=== PATIENT | female | born 1960 | race Caucasian/White ===

== ENCOUNTER 2016-11-15 20:17 | Emergency (ER) | payer OTHER ==
[2016-11-15 21:19] VITALS: BP 120/74
--- NOTE | 2016-11-15 22:29 | UC ---
Abdominal Pain Female HPI - HPI Summary HPI Summary: hospitalized with C. diff. He had prolonged diarrhea at home before admission. Now she has diarrhea, 10 episodes yesterday, and is worried about C. diff. No recent antibiotics. No history of C. diff. No fever, no blood in stool. She also has IBS, and has frequent stools because of that. Cramping lower abdominal pain. She dropped off a stool sample at her primary care doctor' s office today, results should be available tomorrow. Would like an XRay to be sure there is nothing dangerous going on. Able to eat and drink today. - History of Current Complaint Chief Complaint: UCGI Stated Complaint: STOMACH ISSUES Time Seen by Provider: 11/15/16 20:54 Hx Obtained From: Patient Onset/Duration: Gradual Onset, Lasting Days - 2 Timing: Constant Severity Initially: Mild Severity Currently: Mild Location: Other - lower abdominal, diffuse Character: Aching, Cramping, Dull Aggravating Factor(s): Nothing Alleviating Factor(s): Nothing Associated Signs and Symptoms: Positive: Decreased Appetite, Diarrhea - 10 stools yesterday, 2 or 3 today. Negative: Fever, Cough, Dizzy, Back Pain, Constipation, Blood in Stool, Urinary Symptoms, Vaginal Bleeding, Vaginal Discharge, Nausea, Vomiting - Risk Factors Ovarian Torsion Risk Factor: Negative Allergies/Adverse Reactions: Allergies Allergy/AdvReac Type Severity Reaction Status Date / Time Aspirin Allergy Intermediate Hives Verified 11/15/16 21:14 Miconazole [From Monistat] Allergy Intermediate Hives Verified 11/15/16 21:14 Benzyl Alcohol [From Enbrel] Allergy See Comment Verified 11/15/16 21:14 Etanercept [From Enbrel] Allergy See Comment Verified 11/15/16 21:14 Tromethamine [From Enbrel] Allergy See Comment Verified 11/15/16 21:14 Home Medications: Home Medications Hyoscyamine Sulfate [Oscimin Sr] 0.375 mg PO QID PRN 11/15/16 [History Confirmed 11/15/16] Ondansetron TAB* [Zofran Tab*] 4 mg PO Q6H PRN 11/15/16 [History Confirmed 11/15] Pantoprazole TAB (NF) [Protonix TAB (NF)] 40 mg PO BID 11/15/16 [History Confirmed 11/15/16] Sucralfate TAB* [Carafate*] 1 gm PO QID PRN 11/15/16 [History Confirmed 11/15/16 ] PMH/Surg Hx/FS Hx/Imm Hx - Additional Past Medical History Additional PMH: IBS Endocrine History Of: Denies: Diabetes, Thyroid Disease Cardiovascular History Of: Denies: Cardiac Disorders, Hypertension, Pacemaker/ICD, Congestive Heart Failure Respiratory History Of: Denies: COPD, Asthma GI/ History Of: Denies: Ulcer, Renal Disease - Surgical History Surgical History: Yes Surgery Procedure, Year, and Place: PARTIAL HYSTERECTOMY,LAP ED. T&A, C- SECTION, EXPLORATORY ABDOMEN - Family History Known Family History: Positive: Hypertension - Social History Occupation: Employed Full-time Lives: With Family Alcohol Use: None Substance Use Type: None Smoking Status (MU): Never Smoked Tobacco - Immunization History Most Recent Influenza Vaccination: July 2016 Most Recent Pneumonia Vaccination: 2013 Review of Systems Constitutional: Negative Skin: Negative Eyes: Negative ENT: Negative Respiratory: Negative Cardiovascular: Negative Gastrointestinal: Abdominal Pain, Diarrhea Genitourinary: Negative Motor: Negative Neurovascular: Negative Musculoskeletal: Negative Neurological: Negative Psychological: Negative All Other Systems Reviewed And Are Negative: Yes Physical Exam Triage Information Reviewed: Yes Appearance: Well-Appearing, No Pain Distress, Well-Nourished Vital Signs: Initial Vital Signs Temp 98.5 F 11/15/16 21:09 Pulse 75 11/15/16 21:09 Resp 16 11/15/16 21:09 BP 120/74 11/15/16 21:09 Pulse Ox 100 11/15/16 21:09 Vital Signs Reviewed: Yes Eye Exam: Normal Neck exam: Normal Respiratory Exam: Normal Cardiovascular Exam: Normal Abdomen Description: Positive: No Organomegaly, Soft. Negative: CVA Tenderness (R), CVA Tenderness (L), Distended, Guarding, Hernia @, Hepatomegaly, McBurney' s Point Tenderness, Peritoneal Signs, Pulsatile Mass, Splenomegaly Musculoskeletal Exam: Normal Neurological Exam: Normal Psychological Exam: Normal Skin Exam: Normal Diagnostics - Laboratory Diagnostic Studies Completed/Ordered: AXR: unremarkable Abd Pain Female Course/Dx - Differential Dx/Diagnosis Provider Diagnoses: diarrhea Discharge - Discharge Plan Condition: Stable Disposition: HOME Prescriptions: Dicyclomine CAP* [Bentyl CAP*] 10 mg PO TID PRN #20 cap PRN Reason: intestinal cramping Patient Education Materials: Acute Diarrhea (ED) Referrals: Karla MARTINEZ,Souleymane Acuna [Primary Care Provider] - Additional Instructions: Your abdominal XRay did not show any threatening signs of intestinal distention or blockage. Drink lots of fluids. Try the Bentyl for intestinal cramping if your hyosciamine is not helpful. The results of the C. diff testing should be available by tomorrow afternoon. If you have C. diff, it can be treated with an antibiotic.
--- NOTE | 2016-11-15 22:29 | RAD ---
Indication: Bloating, diarrhea. Flat and upright views of the abdomen demonstrates no free air. Air is noted in the colon. No dilated loops of bowel are noted. Surgical clips noted in the pelvis. Patient status post cholecystectomy. IMPRESSION: No free air is identified. There is gas in the colon. Nonspecific bowel gas pattern.
== END 2016-11-15 22:32 | disposition home or self-care (01) ==
LOC: UCCORT 20:17
DX: R19.7 Diarrhea, unspecified (principal); Z88.6 Allergy status to analgesic agent; Z88.8 Allergy status to other drugs, medicaments and biological substances
CPT/HCPCS: 74020; 87086; 99212; G0463

== ENCOUNTER 2017-10-22 12:51 | Emergency (ER) | payer OTHER ==
[2017-10-22 13:10] VITALS: BP 170/84
[2017-10-22] MEDS ORDERED: Ondansetron INJ* 2 MG/ML VIAL IV ONE (13:30)
--- NOTE | 2017-10-22 13:35 | UC ---
Abdominal Pain Female HPI - HPI Summary HPI Summary: 57 yo female with 57yo female with the onset of 08/14 epigastric pain radiating to back which started last PM unable to sleep due to pain severe nausea despite zofran no cp or sob had upper endoscopy on 10/19 with biopsies (for dysgusia) no vomiting or diarrhea or black/tarry stools chills no fever has had choly - History of Current Complaint Chief Complaint: UCGeneralIllness Stated Complaint: ABDOMINAL PAIN, CRAMPING AND NAUSEA Time Seen by Provider: 10/22/17 13:23 Hx Obtained From: Patient Onset/Duration: Gradual Onset, Lasting Hours Timing: Constant Severity Initially: Severe Severity Currently: Moderate Pain Intensity: 8 Pain Scale Used: 0-10 Numeric Location: Epigastric Radiates: Yes Radiates to: Back Character: Burning, Cramping Aggravating Factor(s): Food Alleviating Factor(s): Nothing Associated Signs and Symptoms: Positive: Back Pain, Nausea - severe Allergies/Adverse Reactions: Allergies Allergy/AdvReac Type Severity Reaction Status Date / Time Aspirin Allergy Intermediate Hives Verified 10/22/17 13:10 Miconazole [From Monistat] Allergy Intermediate Hives Verified 10/22/17 13:10 Amoxicillin Allergy Unknown Verified 10/22/17 13:10 Reaction Details Etanercept [From Enbrel] Allergy See Comment Verified 10/22/17 13:10 Tromethamine [From Enbrel] Allergy See Comment Verified 10/22/17 13:10 sugar substitutes Allergy Nausea And Uncoded 10/22/17 13:10 Vomiting PMH/Surg Hx/FS Hx/Imm Hx Previously Healthy: Yes - RA - Surgical History Surgical History: Yes Surgery Procedure, Year, and Place: PARTIAL HYSTERECTOMY,LAP ED. T&A, C- SECTION, EXPLORATORY ABDOMEN, endoscopy, thumb 09/18/17 - Family History Known Family History: Positive: Hypertension - Social History Alcohol Use: None Substance Use Type: None Smoking Status (MU): Never Smoked Tobacco - Immunization History Most Recent Influenza Vaccination: 07/2017 Most Recent Pneumonia Vaccination: 2013 Review of Systems Constitutional: Negative - s Skin: Negative Eyes: Negative ENT: Negative Respiratory: Negative Cardiovascular: Negative Gastrointestinal: Abdominal Pain, Nausea Genitourinary: Negative Motor: Negative Neurovascular: Negative Musculoskeletal: Negative Neurological: Negative Psychological: Negative Is Patient Immunocompromised?: No All Other Systems Reviewed And Are Negative: Yes Physical Exam Triage Information Reviewed: Yes Appearance: Well-Appearing, No Pain Distress, Well-Nourished Vital Signs: Initial Vital Signs Temp 97.9 F 10/22/17 13:04 Pulse 74 10/22/17 13:04 Resp 16 10/22/17 13:04 BP 170/84 10/22/17 13:04 Pulse Ox 98 10/22/17 13:04 Vital Signs Reviewed: Yes Eyes: Positive: Conjunctiva Clear ENT: Positive: Hearing grossly normal, Other - coated tongue. Negative: Nasal congestion, Nasal drainage, Trismus, Muffled voice, Hoarse voice Neck: Positive: Supple Respiratory: Positive: Lungs clear, Normal breath sounds, No respiratory distress, No accessory muscle use Cardiovascular: Positive: RRR, No Murmur Abdomen Description: Positive: Nontender, No Organomegaly, Soft Bowel Sounds: Positive: Present Neurological: Positive: Alert Psychological Exam: Normal Skin Exam: Normal Diagnostics - EKG Cardiac Rate: NL Cardiac Rhythm: Sinus: Normal Ectopy: None ST Segment: Non-Specific Abd Pain Female Course/Dx - Course Course Of Treatment: d/w Dr. Blue. [place] [facility] [place] - Differential Dx/Diagnosis Provider Diagnoses: Severe epigastric pain and nausea. s/p upper endoscopy Discharge - Discharge Plan Condition: Stable Disposition: [facility] Referrals: Karla MARTINEZ,Souleymane Acuna [Primary Care Provider] -
[2017-10-22] MEDS ORDERED: Ondansetron ODT TAB* 4 MG PO ONE (13:40)
== END 2017-10-22 13:52 | disposition short-term general hospital (02) ==
LOC: UCEAST 12:51
DX: R10.13 Epigastric pain (principal); R11.0 Nausea
CPT/HCPCS: 93005; 99213; A9270-GY; G0463; J2405

== ENCOUNTER 2017-10-22 14:07 | Emergency (ER) | payer OTHER ==
[2017-10-22] MEDS ORDERED: Famotidine IV* 10 MG/ML 2 ML (20 mg) IV SLOW PU ONE (15:24)
[2017-10-22] MEDS ORDERED: NS 0.9% 1000 ML* 1,000 ML IV SCH (15:30)
--- NOTE | 2017-10-22 15:40 | ED ---
Mellisa Shaver Gabriel, scribed for Sandra Garcia MD on 10/22/17 at 1517 . Abdominal Pain/Female - HPI Summary HPI Summary: This patient is a 57 year old female BIBA to [facility] with a chief complaint of nausea and abdominal pain since 10/20/17 after endoscopy.Pt sates scope was uncomplicated, she was told had stomach inflammation and "samples" were taken. Patient reports the pain as cramping and 8/10 in severity. Pt took APAP yesterday with little relief. Patient reports pain radiating to the back and epigastrium. Pt also reports persistent nausea. Pt states chronically has nausea for which take zofran. Pt states last dose last night with little relief. Pt denies SOB. No dysuria, hematuria. No diarrhea. No blood or balc stools. Pt states called GI office today - no call back so went to urgent care and was directed here by EMS. EKG was performed at . Pt was given a dose of zofran at with improvement of sx. Pt is not anticoagulated Pt t is not on antacid. Pt states had an echo 2 months ago with an EKG which were "normal" Symptoms are mildly relieved with flatulence, belching, and Zofran. Patient denies vomiting, dysuria, diarrhea. Pt states she tried to eat a tunafish sandwich last night which increased her nausea and cramping pain. Patient has history of IBS, and GERD and has experienced similar symptoms. Pt's medications reviewed this visit. Pt states intermittently has HTN. States has a medication to take "as needed" by cardiology - pt did not take today. - History of Current Complaint Chief Complaint: EDAbdPain Stated Complaint: ABD PAIN, COMING FROM [facility] Time Seen by Provider: 10/22/17 14:56 Hx Obtained From: Patient ?: No Onset/Duration: Lasting Days - since 10/20/17, Still Present Timing: Constant Severity Initially: Mild Severity Currently: Mild Pain Intensity: 2 Pain Scale Used: 0-10 Numeric Location: Epigastric Radiates: Yes Radiates to: Back Character: Burning, Cramping Aggravating Factor(s): Food, Other: - zofran - mild Alleviating Factor(s): Other: - Flatulance, Burping, Zofran Associated Signs and Symptoms: Positive: Back Pain, Nausea. Negative: Urinary Symptoms, Vomiting, Diarrhea Allergies/Adverse Reactions: Allergies Allergy/AdvReac Type Severity Reaction Status Date / Time Aspirin Allergy Intermediate Hives Verified 10/22/17 13:10 Miconazole [From Monistat] Allergy Intermediate Hives Verified 10/22/17 13:10 Amoxicillin Allergy Unknown Verified 10/22/17 13:10 Reaction Details Etanercept [From Enbrel] Allergy See Comment Verified 10/22/17 13:10 Tromethamine [From Enbrel] Allergy See Comment Verified 10/22/17 13:10 sugar substitutes Allergy Nausea And Uncoded 10/22/17 13:10 Vomiting PMH/Surg Hx/FS Hx/Imm Hx Previously Healthy: Yes Endocrine/Hematology History: Denies: Hx Anticoagulant Therapy, Hx Diabetes, Hx Systemic Lupus Erythematosus, Hx Thyroid Disease Cardiovascular History: Denies: Hx Congestive Heart Failure, Hx Hypertension, Hx Pacemaker/ICD Respiratory History: Denies: Hx Asthma, Hx Chronic Obstructive Pulmonary Disease (COPD) GI History: Reports: Hx Gastroesophageal Reflux Disease, Other GI Disorders - ibs 2000,nausea for 1-2 months,pain abdo and back intermittent Denies: Hx Ulcer History: Denies: Hx Dialysis, Hx Renal Disease Musculoskeletal History: Reports: Hx Rheumatoid Arthritis, Other Musculoskeletal History - RA Sensory History: Denies: Hx Hearing Aid Psychiatric History: Denies: Hx Panic Disorder - Cancer History Hx Chemotherapy: No - Surgical History Surgery Procedure, Year, and Place: PARTIAL HYSTERECTOMY,LAP ED. T&A, C- SECTION, EXPLORATORY ABDOMEN, endoscopy, thumb 09/18/17 Infectious Disease History: No Infectious Disease History: Reports: Hx Shingles - 2013 Denies: Hx Hepatitis, Hx Human Immunodeficiency Virus (HIV), History Other Infectious Disease, Traveled Outside the [place] in Last 30 Days - Family History Known Family History: Positive: Cardiac Disease, Hypertension - Social History Lives: Alone Alcohol Use: None Substance Use Type: Reports: None Smoking Status (MU): Never Smoked Tobacco Review of Systems Constitutional: Negative Eyes: Negative Positive: Abdominal Pain, Nausea. Negative: Vomiting, Diarrhea Negative: dysuria All Other Systems Reviewed And Are Negative: Yes Physical Exam Triage Information Reviewed: Yes Vital Signs On Initial Exam: Initial Vitals Temp Pulse Resp BP Pulse Ox 98.1 F 70 20 161/76 95 10/22/17 14:15 10/22/17 14:15 10/22/17 14:15 10/22/17 14:15 10/22/17 14:15 Vital Signs Reviewed: Yes Appearance: Positive: Well-Appearing, No Pain Distress, Well-Nourished Skin: Positive: Warm, Skin Color Reflects Adequate Perfusion, Dry Head/Face: Positive: Normal Head/Face Inspection Eyes: Positive: Normal, EOMI, Conjunctiva Clear ENT: Positive: Normal ENT inspection Neck: Positive: Supple, Nontender Respiratory/Lung Sounds: Positive: Clear to Auscultation, Breath Sounds Present , Decreased Breath Sounds Cardiovascular: Positive: Normal, RRR Abdomen Description: Positive: Nontender - mild epigatric with direct palp No guarding, no rebound, No Organomegaly, Soft Musculoskeletal: Positive: Normal Neurological: Positive: Normal, Sensory/Motor Intact, Alert, Oriented to Person Place, Time Psychiatric: Positive: Normal AVPU Assessment: Alert - [place] Coma Scale Best Eye Response: 4 - Spontaneous Best Motor Response: 6 - Obeys Commands Best Verbal Response: 5 - Oriented Coma Scale Total: 15 Diagnostics - Vital Signs Vital Signs Temp Pulse Resp BP Pulse Ox 10/22/17 14:15 98.1 F 70 20 161/76 95 - Laboratory Result Diagrams: 10/22/17 15:40 10/22/17 15:40 Lab Statement: Any lab studies that have been ordered have been reviewed, and results considered in the medical decision making process. - Radiology ABD Xray Radiology Interpretation Completed By: Radiologist - NONOBSTRUCTIVE BOWEL GAS PATTERN. NO APPRECIABLE SUBPHRENIC GAS. ED physician has reviewed this radiology report and agrees. CXR Radiology Interpretation Completed By: Radiologist - NO ACTIVE DISEASE. ED physician has reviewed this radiology report and agrees. - CT CTA Chest/ABD CT Interpretation Completed By: Radiologist - 1. No CT evidence of thoracic or abdominal aortic aneurysm or dissection. Incidental origin stenosis celiac axis. 2. No additional significant CT findings. ED physician has reviewed this radiology report. Re-Evaluation - Re-Evaluation First Eval Re-Evaluation Time: 16:49 Change: Improved - Patient has less abdominal discomfort after the Pepcid. Second Eval Re-Evaluation Time: 17:45 Comment: I reviewed the CT results with the patient. I also gave her water and crackers and discussed her discharge with her. Abdominal Pain Fem Course/Dx - Course Course Of Treatment: Pt with epigatric pain radiating to back with nausea s/p endoscopy on Sunday. Pt given zofran with mild improvement. Will check labs. FAS. Will consider CTA c/a/p. IVF. Pepcid. REviewed EKG form urgent care: NSR, 75 inverted t-wave [address], T wave changes - Diagnoses Provider Diagnoses: Abdominal pain, Nausea Discharge - Discharge Plan Condition: Stable Disposition: HOME Patient Education Materials: Abdominal Pain (ED) Referrals: Karla MARTINEZ,Souleymane Acuna [Primary Care Provider] - Additional Instructions: - Stay well hydrated. Avoid excess caffeine and alcohol - Okay to take Pepcid daily as instructed - Eat small portion bland foods every 2-3 hours (dry toast, scrambled eggs, crackers) If you tolerate this, okay to slowly introduce food to your diet. Avoid spicy food, acidic food, tomato based foods. - Okay to take zofran as previous for nausea - Contact your primary doctor tomorrow to schedule a follow-up appointment. Contact your doctor or return with questions or concerns The documentation as recorded by the Mellisa buckley Gabriel accurately reflects the service I personally performed and the decisions made by me, Sandra Garcia MD.
[2017-10-22 15:53] LABS: Hematocrit 39 % (35-47); Hemoglobin 13.3 g/dl (12.0-16.0); Mean Corpuscular HGB Conc 34 g/dl (31-36); Mean Corpuscular Hemoglobin 30 pg (27-31); Mean Corpuscular Volume 89 fL (80-97); Mean Platelet Volume 7 um3 (7.4-10.4); Red Blood Count 4.42 10^6/ul (4.0-5.4); Red Cell Distribution Width 14 % (10.5-15)
[2017-10-22 16:12] LABS: Albumin 4.4 g/dL (3.2-5.2); BUN/Creatinine Ratio 14.1 (8-20); Calcium 9.7 mg/dL (8.6-10.3); EGFR African American 98.3 (>60); EGFR Non-African American 76.4 (>60); Globulin 3.1 g/dL (2-4); Magnesium 2.1 mg/dL (1.9-2.7); Potassium 3.5 mmol/L (3.5-5.0); Total Bilirubin 0.5 mg/dL (0.2-1.0); Total Protein 7.5 g/dL (6.4-8.9)
[2017-10-22 16:13] LABS: Troponin I 0.02 ng/mL (<0.04)
--- NOTE | 2017-10-22 16:28 | RAD ---
HISTORY: Epigastric pain status post endoscopy COMPARISONS: November 15, 2016 VIEWS: Frontal supine and upright views of the abdomen. FINDINGS: BOWEL: There is a nonobstructive bowel gas pattern. There is a large amount of stool within the colon. CALCULI: There are no abnormal calculi. BONES AND SOFT TISSUES: Degenerative changes are noted along the lower lumbar spine OTHER FINDINGS: The lung bases are clear. There is no subphrenic gas. IMPRESSION: NONOBSTRUCTIVE BOWEL GAS PATTERN. NO APPRECIABLE SUBPHRENIC GAS.
--- NOTE | 2017-10-22 16:28 | RAD ---
INDICATION: Epigastric pain following endoscopy COMPARISON: None TECHNIQUE: PA dual-energy views were obtained. FINDINGS: Bones/Soft Tissues: There are no acute bony findings. Cardiomediastinal: The cardiomediastinal silhouette is normal. Lungs: There are no infiltrates. Pleura: There are no pleural effusions. Other: There is no subdiaphragmatic free air. IMPRESSION: NO ACTIVE DISEASE.
[2017-10-22] MEDS ORDERED: Iohexol 350* (CONTRAST) 500 ML MDV IV ONE (17:11)
[2017-10-22 17:34] LABS: Urine Bilirubin Negative (Negative); Urine Glucose Negative (Negative); Urine Nitrite Negative (Negative)
--- NOTE | 2017-10-22 17:38 | RAD ---
INDICATION: Epigastric pain. Evaluate for aortic dissection COMPARISON: CT abdomen pelvis December 04, 2016 TECHNIQUE: Axial source images were obtained from the thoracic inlet to the symphysis pubis following administration of intravenous contrast only as part of a CT angiographic evaluation of the aorta. Coronal and sagittal reconstructed images were acquired. 3-D volume rendered images of the aorta were obtained CHEST FINDINGS: Neck/thyroid: The visualized neck to include the thyroid appear normal. Chest wall: There are no acute abnormalities of the bony thorax or chest wall. There is no supraclavicular, infraclavicular, or axillary lymphadenopathy. Lungs : There are no pulmonary parenchymal masses or infiltrates. The pulmonary interstitium appears normal. There are no endobronchial lesions. Cardiomediastinal structures: The heart is normal in size. There is no pericardial effusion. There is no evidence of aortic aneurysm or dissection. The pulmonary vessels appear normal. There is no mediastinal or hilar adenopathy. The esophagus appears normal. Pleura : There are no pleural-based masses or effusions. ABDOMINAL/PELVIC FINDINGS: Liver: The liver is enlarged with findings of hepatic steatosis. There are no masses. There is no ductal dilatation. Gallbladder: Cholecystectomy. Spleen: The spleen is normal in size. There are no masses identified on either arterial phase enhanced images. There is a splenule.. Pancreas: There is no evidence of pancreatic mass or ductal dilatation. Adrenal glands: There is no evidence of adrenal mass. Kidneys: The kidneys are normal in size and position. There are prompt nephrograms and there is prompt excretion bilaterally. There are no renal parenchymal masses. There is no evidence of nephrolithiasis. Adenopathy: There is no evidence of adenopathy by size criteria. Fluid collections: There are no free or localized fluid collections. Vessels: The aorta and iliac vessels are normal in caliber. There is no evidence of aneurysm or dissection. 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 The remaining visceral branches appear normal. GI tract: There are no acute CT bowel findings. There is no obstruction. The stomach and small bowel appear normal. The lower GI tract is normal. The cecum, ileocecal valve, and terminal ileum appear normal. The appendix is visualized and appear normal. Pelvic organs: The uterus and adnexa appear normal Bladder: There are no bladder masses. Abdominal and pelvic soft tissues: The extraperitoneal abdominal and pelvic soft tissues appear normal.. Osseous structures: There are no acute osseous findings. IMPRESSION: 1. No CT evidence of thoracic or abdominal aortic aneurysm or dissection. Incidental origin stenosis celiac axis. 2. No additional significant CT findings.
[2017-10-22 18:56] VITALS: BP 129/72
== END 2017-10-22 18:55 | disposition home or self-care (01) ==
LOC: ED 14:07
DX: R10.13 Epigastric pain (principal); R11.0 Nausea; M54.9 Dorsalgia, unspecified; K21.9 Gastro-esophageal reflux disease without esophagitis; M06.9 Rheumatoid arthritis, unspecified; Z90.49 Acquired absence of other specified parts of digestive tract; Z88.6 Allergy status to analgesic agent; Z88.1 Allergy status to other antibiotic agents; Z88.8 Allergy status to other drugs, medicaments and biological substances; Z90.711 Acquired absence of uterus with remaining cervical stump
CPT/HCPCS: 36415; 71010; 71275; 74020; 74174; 80053; 81003; 83605; 83690; 83735; 84484; 85025; 96374; 99283; Q9967